=== PATIENT | female | born 1950 | race Hispanic/Latino ===

== ENCOUNTER → 2024-01-08 | Outpatient (CLI) | payer MEDICARE, OTHER | END | disposition home or self-care (01) | LOC: SHCH 13:59 | PROVIDERS: ATTEND Student in an Organized Health Care Education/Training Program | DX: Z95.2 Presence of prosthetic heart valve (principal) | CPT/HCPCS: 93306 ==

== ENCOUNTER → 2024-09-15 | Outpatient (CLI) | payer MEDICARE, OTHER ==
[~2024-09-15] MED LIST: IOHEXOL-350 75 ML VIAL IV ONE
--- NOTE | 2024-09-15 17:37 | HMCIMG ---
CT LOW EXT W/WO CONTRAST HISTORY: Injury COMPARISON: None TECHNIQUE: Multiple sequential axial images of the left knee were obtained including post processing sagittal and coronal reconstruction images. Patient was given 75 cc of Omnipaque through intravenous route. FINDINGS: There is no acute displaced fracture or dislocation. Degenerative changes are seen with osteophyte formation. Joint space narrowing is seen worse at dependent joint and patellofemoral joint. Osteophytes are seen. Vascular calcifications are seen. Evaluation for ligaments, tendons and menisci are limited with CT. MRI may be helpful. Trace joint effusion. IMPRESSION: 1. Joint effusion. Degenerative changes. No acute displaced fracture. CT was performed with one or more following dose reduction techniques: automated exposure control, adjustment of the mA and kv according to patient's size, or use of a iterative reconstruction technique.
== END | disposition home or self-care (01) ==
LOC: RAH 12:41
PROVIDERS: ATTEND Student in an Organized Health Care Education/Training Program
DX: S80.912A Unspecified superficial injury of left knee, initial encounter (principal); M17.12 Unilateral primary osteoarthritis, left knee; M25.462 Effusion, left knee; M25.762 Osteophyte, left knee; M25.862 Other specified joint disorders, left knee; I34.2 Nonrheumatic mitral (valve) stenosis; X58.XXXA Exposure to other specified factors, initial encounter; Y93.89 Activity, other specified; Y92.89 Other specified places as the place of occurrence of the external cause; Y99.8 Other external cause status
CPT/HCPCS: 73702; Q9967